=== PATIENT | male | born 1945 | race Caucasian/White ===

== ENCOUNTER → 2018-05-31 08:59 | Outpatient (CLI) | payer MEDICARE, OTHER, SELFPAY ==
[2018-05-31 10:49] LABS: Alanine Aminotransferase 26 IU/L (21-72); Aspartate Aminotransferase 15 IU/L (17-59); Cholesterol 186 mg/dL (140-199); HDL Cholesterol 26 mg/dL (40-60); LDL Cholesterol Calculated 109 mg/dL (<100); Triglycerides 257 mg/dL (35-150)
== END ==
PROVIDERS: Family Provider Family Medicine; PCP Physician Assistant; Visit Provider Physician Assistant
DX: E78.2 Mixed hyperlipidemia (principal)
CPT/HCPCS: 36415; 80061; 84450; 84460

== ENCOUNTER → 2018-10-05 08:56 | Outpatient (CLI) | payer MEDICARE, OTHER, SELFPAY ==
[2018-10-05 10:10] LABS: Cholesterol 166 mg/dL (140-199); HDL Cholesterol 25 mg/dL (40-60); LDL Cholesterol Calculated 96 mg/dL (<100); Triglycerides 225 mg/dL (35-150)
[2018-10-05 10:42] LABS: Thyroid Stimulating Hormone 3.44 uIU/mL (0.47-4.68)
== END ==
PROVIDERS: PCP Physician Assistant; Visit Provider Physician Assistant
DX: E03.9 Hypothyroidism, unspecified (principal); E78.2 Mixed hyperlipidemia
CPT/HCPCS: 36415; 80061; 84443

== ENCOUNTER → 2018-12-15 12:56 | Outpatient (CLI) | payer MEDICARE, OTHER, SELFPAY ==
--- NOTE | 2018-12-15 | DI.CT.S_ITS ---
PROCEDURE: CT ABDOMEN PELVIS W CON INDICATIONS: Lower abdominal pain, unspecified TECHNIQUE: After the administration of oral and intravenous contrast, 5 mm thick sections acquired from the diaphragms to the symphysis. 5 mm thick coronal and sagittal reformats were performed. For radiation dose reduction, the following was used: automated exposure control, adjustment of mA and/or kV according to patient size. COMPARISON: None. FINDINGS: Image quality: Excellent. ABDOMEN: Lung bases: Mild dependent atelectasis is present. There are a few small pulmonary nodules within the left lung base including a 5 mm left lower lobe nodule on series 5 image 12, a 4 mm left lower lobe nodule on image 16, and a 4 mm nodule in the left lower lobe on image 18. Within the inferior middle lobe, there is a small groundglass nodule measuring 5 mm on image 10. Heart size is normal. There is a small hernia. Solid organs: There is diffuse hypoattenuation of the liver consistent with fatty infiltration. The gallbladder appears within normal limits without calcified gallstones. Biliary system is non-dilated. Pancreas enhances normally. Spleen is normal in size and enhancement. No adrenal nodules. Kidneys demonstrate no hydronephrosis. There is mild focal cortical thinning in the superior pole the right kidney which could represent sequela of prior trauma, infection, or infarct. Peritoneum and bowel: Stomach and small bowel loops are normal in caliber and wall thickness. The appendix is normal in appearance. There is colonic diverticulosis with associated inflammatory wall thickening and fat stranding in the proximal sigmoid colon consistent with acute diverticulitis. No evidence of diverticular abscess or microscopic free air. No free fluid. Nodes and vessels: No retroperitoneal or mesenteric adenopathy. There is ectasia of the infrarenal abdominal aorta measuring up to 2.8 cm in anteroposterior dimension. There is diffuse scattered atherosclerotic plaque. 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 Miscellaneous: No ventral hernias. PELVIS: Genitourinary: Bladder wall thickness is normal. There is heterogeneous enlargement of the prostate. Miscellaneous: No inguinal hernias or adenopathy. Bones: No suspicious bony lesions. There are postsurgical changes within the lower lumbar spine at L4-5 status post posterior fixation. An intervertebral spacer is noted at L4-5. No vertebral body compression fractures. IMPRESSION: 1. Acute diverticulitis of the proximal sigmoid colon without evidence of abscess or microscopic free air. 2. Multiple small pulmonary nodules in the left lower lobe measuring up to [address] may be performed in 6-12 months to demonstrate stability if clinically indicated. Findings discussed with Liz Cancino on 11/18/18 at 2:43 PM. 3. 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 4. Hepatic steatosis. Dictated by: Bala Ahuja M.D. on 12/15/2018 at 14:36 Approved by: Bala Ahuja M.D. on 12/15/2018 at 14:46
== END ==
PROVIDERS: PCP Physician Assistant; Visit Provider Physician Assistant
DX: R10.30 Lower abdominal pain, unspecified (principal); K57.32 Diverticulitis of large intestine without perforation or abscess without bleeding; R91.8 Other nonspecific abnormal finding of lung field; I72.2 Aneurysm of renal artery; K76.0 Fatty (change of) liver, not elsewhere classified
CPT/HCPCS: 74177; Q9967

== ENCOUNTER → 2019-12-22 11:03 | Outpatient (CLI) | payer MEDICARE, OTHER, SELFPAY ==
[2019-12-22 11:42] LABS: BUN Creatinine Ratio 15.6 (6-22); Blood Urea Nitrogen 14 mg/dL (9-20); Calcium 9.1 mg/dL (8.4-10.2); Carbon Dioxide 25 mmol/L (22-32); Chloride 99 mmol/L (98-107); Estimated Glomerular Filt Rate > 60.0 mL/min (>60); Glucose 91 mg/dL (80-110); HEMOLYSIS < 15 (0-50); Potassium 4.5 mmol/L (3.4-5.1); Sodium 135 mmol/L (137-145)
--- NOTE | 2019-12-22 12:00 | DI.CT.S_ITS ---
PROCEDURE: CT CHEST W CON INDICATIONS: Solitary pulmonary nodule TECHNIQUE: After the administration of intravenous contrast, 5 mm thick sections acquired from the pulmonary apices to the posterior costophrenic angles. 1 mm axial lung, 5 mm thick coronal and sagittal reformats and 7 mm axial MIP were acquired. For radiation dose reduction, the following was used: automated exposure control, adjustment of mA and/or kV according to patient size. COMPARISON: [facility], MR, C-SPINE WITHOUT CONTRAST, 09/11/2016, 12:05. [facility], RG, XR CXR 2 VIEW, 12/23/2001, 9:52. [facility], CT, CT ABDOMEN PELVIS W CON, 12/15/2018, 13:51. FINDINGS: Image quality: Excellent. Lungs and pleura: No acute air space opacities. The small nodular radiodensities within the lingular segment left upper lobe in the left lower lobe and a similar axial level each has not changed with reference to the prior study from 12/15/18. These again measure between 4 and 5 mm each, and several of the nodules are better visualized than on the prior study without globe changer time otherwise. No pleural effusions or pneumothorax. Central and peripheral airways are patent and normal in caliber. Mediastinum: Heart size is normal. No pericardial effusion. No mediastinal or hilar adenopathy by size criteria. 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 This measures up to 2.2 cm in diameter, has a small amount of eccentric blood flow into its margin that is contiguous with the aortic lumen, and has eccentric chronic thrombosed mineral content more peripherally. This is well visualized on axial image 20 from series 2.. Esophagus is normal in caliber. No hiatal hernia. Bones and chest wall: No suspicious bony lesions. No vertebral body compression fractures. No axillary or supraclavicular adenopathy by size criteria. Thyroid gland appears normal. Abdomen: Visualized upper abdominal solid organs appear normal. Upper abdominal bowel loops are normal in caliber. IMPRESSION: 1. Several scattered left lower lung benign appearing nodules are present, without globe changer time. These range in size from 4-5 mm, and require no followup given their small size and stability of appearance over time over the prior year. Given the proximity and appearance of the nodules they likely are granulomatous in origin. 2. 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 This measures up to 2.2 cm in maximal diameter, contains eccentric internal blood flow and chronic thrombosed blood along its periphery, and has no comparison study to establish stability of appearance over time. This likely is chronic, shows no evidence of adjacent hemorrhage, but has risk of interval enlargement. A vascular surgical consult may be warranted if intervention would be considered. Dictated by: Chuck Ramos M.D. on 12/22/2019 at 13:39 Approved by: Chuck Ramos M.D. on 12/22/2019 at 14:18
== END ==
PROVIDERS: PCP Internal Medicine; Referring Provider Internal Medicine; Visit Provider Internal Medicine
DX: I71.2 Thoracic aortic aneurysm, without rupture (principal); R91.8 Other nonspecific abnormal finding of lung field; I10 Essential (primary) hypertension
CPT/HCPCS: 36415; 71260; 80048; Q9967

== ENCOUNTER → 2020-01-04 15:22 | Outpatient (ROUT) | payer MEDICARE, OTHER, SELFPAY ==
[2020-01-04 15:39] LABS: Add Manual Diff / Slide Review NO; Basophils Absolute Auto 100 /uL (0-100); Basophils Percent Auto 0.5 % (0-2); Eosinophils Absolute Auto 200 /uL (0-450); Eosinophils Percent Auto 1.9 % (2-4); Hematocrit 47.6 % (41-53); Hemoglobin 16.4 g/dL (13.5-17.5); Lymphocytes Absolute Auto 2300 /uL (1100-4500); Lymphocytes Percent Auto 23.7 % (25-40); Mean Corpuscular HGB Conc 34.4 % (30-36); Mean Corpuscular Hemoglobin 29.8 PG (26-34); Mean Corpuscular Volume 86.7 fL (80-100); Monocytes Absolute Auto 900 /uL (0-900); Monocytes Percent Auto 9.3 % (3-14); Neutrophils Absolute Auto 6200 /uL (1500-7000); Neutrophils Percent Auto 64.6 % (50-75); Platelet Count 168 X10^3/uL (150-400); Red Blood Cell Count 5.49 X10^6/uL (4.5-5.9); Red Cell Distribution Width 14.9 % (11.6-14.8); White Blood Cell Count 9.6 X10^3/uL (4.5-11.0)
[2020-01-04 16:23] LABS: Aspartate Aminotransferase 24 IU/L (17-59); BUN Creatinine Ratio 16.7 (6-22); Blood Urea Nitrogen 15 mg/dL (9-20); Calcium 9.6 mg/dL (8.4-10.2); Carbon Dioxide 24 mmol/L (22-32); Chloride 100 mmol/L (98-107); Cholesterol 214 mg/dL (140-199); Estimated Glomerular Filt Rate > 60.0 mL/min (>60); Glucose 91 mg/dL (80-110); HDL Cholesterol 23 mg/dL (40-60); HEMOLYSIS < 15 (0-50); LDL Cholesterol Calculated 124 mg/dL (<100); Potassium 4.3 mmol/L (3.4-5.1); Sodium 139 mmol/L (137-145); Triglycerides 336 mg/dL (35-150); Uric Acid 7.5 mg/dL (3.5-8.5)
[2020-01-04 16:44] LABS: TSH w/ Reflex to FT4 6.48 uIU/mL (0.47-4.68)
[2020-01-04 16:49] LABS: Prostate Specific Antigen 3.53 ng/mL (0.10-4.00)
[2020-01-04 17:08] LABS: Free T4, Direct Thyroxine 1.07 ng/dL (0.78-2.19)
== END ==
PROVIDERS: PCP Internal Medicine; Visit Provider Internal Medicine
DX: I10 Essential (primary) hypertension (principal); E78.2 Mixed hyperlipidemia; E03.9 Hypothyroidism, unspecified; M10.9 Gout, unspecified; N40.0 Benign prostatic hyperplasia without lower urinary tract symptoms
CPT/HCPCS: 80048; 80061; 84153; 84439; 84443; 84450; 84550; 85025

== ENCOUNTER 2020-06-22 18:46 | Emergency (ER) | payer MEDICARE, OTHER, SELFPAY ==
[2020-06-22 18:55] VITALS: BP 159/86; PULSE 94; RESP 17; TEMP 36.9; O2SAT 97; BMI 25.1
--- NOTE | 2020-06-22 19:36 | ED.UPPEXIN ---
HPI - Extremity Injury (Upper) <LAKESHIA Johnston - Last Filed: 06/22/20 21:18> General Chief Complaint: Extremity Injury, Upper Stated Complaint: LEFT SHOULDER AND NECK PAIN Time Seen by Provider: 06/22/20 18:57 Source: patient and family Mode of arrival: Ambulatory History of Present Illness HPI narrative: 75yo male presents to the ED for left sided back, neck, and shoulder pain. Patient states this pain started a few weeks ago and is worse when he turns his head to the left or internally rotate shoulder. He states he has had upper back problems in the past and usually sees a chiropractor but has been unable to get into 1 at this time. Patient states he takes aspirin which has significantly relieved his pain. He denies any fevers, chest pain, shortness of breath, nausea, vomiting, diarrhea, recent spinal injections, or any other concerns. He denies any numbness or tingling, denies any limb weakness. Related Data Home Medications Medication Instructions Recorded Confirmed aspirin 325 mg PO BID 06/22/20 06/22/20 Previous Rx's Medication Instructions Recorded triamcinolone acetonide 0 gm TOPICAL QDAY PRN #1 tube 07/16/16 lisinopril 10 mg PO QDAY #90 tab 02/27/17 ketoconazole [Nizoral] 2 % TOPICAL WEEKLY #120 ml 04/22/17 levothyroxine 75 mcg tablet 75 mcg PO QAM #30 tab 05/20/18 cyclobenzaprine 5 mg PO BID #14 tab 06/22/20 Allergies Allergy/AdvReac Type Severity Reaction Status Date / Time banana [BANANA] Allergy Severe SWELLING Verified 06/22/20 18:58 OF THE THROAT/MOUTH Review of Systems <LAKESHIA Johnston - Last Filed: 06/22/20 21:18> Review of Systems Narrative: REVIEW OF SYSTEMS: GENERAL: Denies fever or chills. HENT: No head trauma. EYES: No double vision or vision loss. CARDIOVASCULAR: No chest pain or syncope. RESPIRATORY: No shortness of breath or cough. GASTROINTESTINAL: No nausea, vomiting, diarrhea, or constipation. GENITOURINARY: No flank pain or dysuria. MUSCULOSKELETAL: Complains of left shoulder and neck pain, see HPI. INTEGUMENTARY: No rash, lesions, or pruritus. NEURO: No numbness, tingling. PSYCH: No behavior or mood changes. Patient History <LAKESHIA Johnston - Last Filed: 06/22/20 21:18> Surgical History History of spinal fusion Status post hernia repair Status post hernia repair Status post hernia repair Status post laminectomy Social History Smoking Status: Never smoker Smoking Status: Never smoker alcohol intake frequency: a few times a week Substance Use Type: does not use Exam <LAKESHIA Johnston - Last Filed: 06/22/20 21:18> Initial Vital Signs Initial Vital Signs: Vital Signs Temperature 98.5 F 06/22/20 18:55 Pulse Rate 94 H 06/22/20 18:55 Respiratory Rate 17 06/22/20 18:55 Blood Pressure 159/86 H 06/22/20 18:55 Pulse Oximetry 97 06/22/20 18:55 PHYSICAL EXAMINATION: GENERAL: Well groomed, alert, and cooperative. Answers questions promptly and appropriately. Vital signs noted. HENT: Normocephalic, atraumatic. EYES: Symmetrical, sclera white, no periorbital swelling. CARDIOVASCULAR: S1 and S2 sounds normal. Regular rate and rhythm, no murmurs, clicks, or bruits. No pedal edema. RESPIRATORY: Normal respiratory rate, trachea midline, airway patent. No stridor, nasal flaring or accessory muscle use. Lungs are clear in all riley. MUSCULOSKELETAL: Tenderness to palpation along the left upper trapezius muscles, palpable muscle spasms noted. Tenderness to palpation along posterior aspect of left shoulder, increased pain with internal rotation. Decreased internal rotation on left side due to pain, full external rotation, flexion, and extension. Normal gait and coordination. Equal tone and mass bilaterally. No spinal tenderness or deformities. EXTREMITIES: CMS intact. No pedal edema. SKIN: Warm, dry, soft, appropriate color for ethnicity. No lesions, rashes, or wounds. NEURO: Alert and Oriented X 3. No sensory deficits. PSYCH: Appropriate affect and mood. <Jignesh Chew DO - Last Filed: 06/23/20 01:44> Initial Vital Signs Initial Vital Signs: Vital Signs Temperature 98.5 F 06/22/20 18:55 Pulse Rate 94 H 06/22/20 18:55 Respiratory Rate 17 06/22/20 18:55 Blood Pressure 159/86 H 06/22/20 18:55 Pulse Oximetry 97 06/22/20 18:55 Course <LAKESHIA Johnston - Last Filed: 06/22/20 21:18> Course Course Narrative: Patient was given Toradol and Valium in the emergency department, reported improved pain. We had a discussion at length about possible options for treatment, discussed benefits and risks muscle relaxers, patient consented. Discussed applying heat, ice, perform gentle stretches and massage to the area. Orders Ordered: ED Orders 06/22/20 18:59 EKG-12 Lead Stat Discontinued Medications Diazepam (Valium) 5 mg PO NOW ONE Stop: 06/22/20 19:36 Last Admin: 06/22/20 20:08 Dose: 5 mg Documented by: WALI Ketorolac Tromethamine (Toradol) 30 mg IM NOW ONE Stop: 06/22/20 19:36 Last Admin: 06/22/20 20:08 Dose: 30 mg Documented by: WALI Vital Signs Vital signs: Vital Signs - 8 hr 06/22/20 18:55 06/22/20 20:44 Temperature 98.5 F Pulse Rate 94 H 74 Respiratory Rate 17 Blood Pressure 159/86 H 160/86 H Pulse Oximetry 97 97 <Jignesh Chew DO - Last Filed: 06/23/20 01:44> Orders Ordered: ED Orders 06/22/20 18:59 EKG-12 Lead Stat Discontinued Medications Diazepam (Valium) 5 mg PO NOW ONE Stop: 06/22/20 19:36 Last Admin: 06/22/20 20:08 Dose: 5 mg Documented by: WALI Ketorolac Tromethamine (Toradol) 30 mg IM NOW ONE Stop: 06/22/20 19:36 Last Admin: 06/22/20 20:08 Dose: 30 mg Documented by: WALI Vital Signs Vital signs: Vital Signs - 8 hr 06/22/20 18:55 06/22/20 20:44 Temperature 98.5 F Pulse Rate 94 H 74 Respiratory Rate 17 Blood Pressure 159/86 H 160/86 H Pulse Oximetry 97 97 MDM - Extremity Injury (Upper) <LAKESHIA Johnston - Last Filed: 06/22/20 21:18> Medical Records Attestation: I reviewed the patient's medical records. Lab Data Attestation: I reviewed the patient's lab results. [facility] Narrative Medical decision making narrative: 75-year-old male presents to the emergency department for reproducible left shoulder and neck pain. I suspect patient's pain is most likely caused by muscle spasms and a pinched nerve given pain that extends from neck to shoulder, worsening pain with certain movements, and complains of intermittent etiology. Less likely cardiac etiology given reproducible pain, palpable muscle spasms, and lack of other concerning symptoms such as chest pain, shortness of breath, or syncope. Return precautions given for new or worsening symptoms. Patient agreed to plan of care verbalized understanding. Discharge Plan Departure Patient Disposition: Home Clinical Impression: Acute shoulder pain Qualifiers: Laterality: left Qualified Code(s): M25.512 - Pain in left shoulder Discharge Date/Time: 06/22/20 20:46 Instructions: DI for Shoulder Pain Activity Restrictions/Additional Instructions: Thank you for entrusting me with your care today. As discussed, your pain is most likely caused by muscle spasms and a pinched nerve. We have given you a shot of Toradol today as well as a dose of a muscle relaxer. I have given you a prescription for muscle relaxer. This medication can make you drowsy. Do not drive while using this medication or perform activities that require mental alertness. Please make a follow-up appointment with your primary care provider in the next 1-2 weeks for further evaluation. Return emergency department for any new or worsening symptoms such as severe pain, chest pain, shortness of breath, or any other concerns. Prescriptions: New cyclobenzaprine 5 mg tablet 5 mg PO BID Qty: 14 RF: 0 No Action triamcinolone acetonide 0.1 % cream 0 gm Topical QDAY PRNQty: 1 RF: 0 lisinopril 10 MG tablet 10 mg PO QDAY Qty: 90 RF: 4 ketoconazole [Nizoral] 2 % shampoo 2 % Topical WEEKLY Qty: 120 RF: 0 levothyroxine [Levoxyl] 75 mcg tablet 75 mcg PO QAM Qty: 30 RF: 0 aspirin 325 mg Tablet 325 mg PO BID RF: 0 Referrals: Noé Mandel MD [Primary Care Provider] - <Jignesh Chew DO - Last Filed: 06/23/20 01:44> Cosign ED Attending Cosignature Attestation: I was immediately available in the department for consultation. This documentation has been reviewed and I agree with assessment and plan. Supervised by Jignesh Chew DO
[2020-06-22] MEDS: diazePAM 5 MG TABLET PO (20:08)
[2020-06-22] MEDS: KETOROLAC 60 MG/2 ML VIAL 30 MG IM (20:08)
--- NOTE | 2020-06-22 20:12 | PC.NURSE ---
reports possible injury from moving fire wood. states a few days ago he started to experience left shoulder and neck pain that started at rest. He states it is likely related to his neck needing adjustment from a chiropractor. he regularly sees chiropractor for relief and has not seen chiropractor in a while. Denies chest pains, shortness of breath, palpataions. EKG performed upon arrival to room by RT.
[2020-06-22 20:44] VITALS: BP 160/86; PULSE 74; O2SAT 97
== END 2020-06-22 20:46 | disposition home or self-care (01) ==
PROVIDERS: Emergency Provider Nurse Practitioner; PCP Internal Medicine
DX: M25.512 Pain in left shoulder (principal); M54.2 Cervicalgia
CPT/HCPCS: 93005; 96372; 99283; 99284; J1885

== ENCOUNTER → 2020-07-04 14:58 | Outpatient (ROUT) | payer MEDICARE, OTHER, SELFPAY ==
[2020-07-04 17:04] LABS: Vitamin D 25 Hydroxy (D3) 36.5 ng/mL (30.0-100.0)
== END ==
PROVIDERS: PCP Internal Medicine; Visit Provider Internal Medicine
DX: E03.9 Hypothyroidism, unspecified (principal); E55.9 Vitamin D deficiency, unspecified
CPT/HCPCS: 82306; 84443

== ENCOUNTER → 2021-01-09 18:32 | Outpatient (ROUT) | payer MEDICARE, OTHER, SELFPAY ==
[2021-01-09 19:23] LABS: Aspartate Aminotransferase 22 IU/L (17-59); BUN Creatinine Ratio 17.7 (6-22); Blood Urea Nitrogen 14 mg/dL (9-20); Calcium 9.4 mg/dL (8.4-10.2); Carbon Dioxide 26 mmol/L (22-32); Chloride 102 mmol/L (98-107); Cholesterol 204 mg/dL (140-199); Estimated Glomerular Filt Rate > 60.0 mL/min (>60); Glucose 77 mg/dL (80-110); HDL Cholesterol 25 mg/dL (40-60); HEMOLYSIS < 15 (0-50); LDL Cholesterol Calculated 120 mg/dL (<100); Potassium 4.3 mmol/L (3.4-5.1); Sodium 135 mmol/L (137-145); Triglycerides 297 mg/dL (35-150); Uric Acid 7.2 mg/dL (3.5-8.5)
[2021-01-09 19:53] LABS: Prostate Specific Antigen 4.01 ng/mL (0.10-4.00)
[2021-01-09 19:56] LABS: TSH w/ Reflex to FT4 4.64 uIU/mL (0.47-4.68)
[2021-01-11 06:18] LABS: Var-Zoster Immunity Screen 273 index (Immune >165)
== END ==
PROVIDERS: PCP Internal Medicine; Visit Provider Internal Medicine
DX: Z20.9 Contact with and (suspected) exposure to unspecified communicable disease (principal); M10.9 Gout, unspecified; N40.0 Benign prostatic hyperplasia without lower urinary tract symptoms
CPT/HCPCS: 80048; 80061; 84153; 84443; 84450; 84550; 86787

== ENCOUNTER → 2022-03-31 11:04 | Outpatient (CLI) | payer MEDICARE, OTHER, SELFPAY ==
[2022-03-31 13:00] LABS: Hematocrit 43.8 % (41-53); Hemoglobin 15.2 g/dL (13.5-17.5); Mean Corpuscular HGB Conc 34.8 % (30-36); Mean Corpuscular Hemoglobin 29.8 PG (26-34); Mean Corpuscular Volume 85.8 fL (80-100); Platelet Count 167 X10^3/uL (150-400); Red Blood Cell Count 5.11 X10^6/uL (4.5-5.9); Red Cell Distribution Width 14.5 % (11.6-14.8); White Blood Cell Count 8.5 X10^3/uL (4.5-11.0)
[2022-03-31 13:17] LABS: Alanine Aminotransferase 18 IU/L (<50); Albumin 4.5 g/dL (3.5-5.0); Albumin Globulin Ratio 1.3 (1.0-2.8); Alkaline Phosphatase 60 U/L (38-126); Aspartate Aminotransferase 22 IU/L (17-59); BUN Creatinine Ratio 18.6 (6-22); Bilirubin Total 0.6 mg/dL (0.2-1.3); Blood Urea Nitrogen 16 mg/dL (9-20); Calcium 8.9 mg/dL (8.4-10.2); Carbon Dioxide 24 mmol/L (22-32); Chloride 103 mmol/L (98-107); Cholesterol 193 mg/dL (140-199); Estimated Glomerular Filt Rate > 60 mL/min (>60); Globulin 3.6 g/dL (1.7-4.1); Glucose 94 mg/dL (80-110); HDL Cholesterol 25 mg/dL (40-60); HEMOLYSIS 15 (0-50); LDL Cholesterol Calculated 95 mg/dL (<100); Potassium 4.5 mmol/L (3.4-5.1); Sodium 135 mmol/L (137-145); Total Protein 8.1 g/dL (6.3-8.2); Triglycerides 367 mg/dL (35-150)
[2022-03-31 14:16] LABS: TSH w/ Reflex to FT4 3.39 uIU/mL (0.47-4.68)
== END ==
PROVIDERS: PCP Internal Medicine; Referring Provider Internal Medicine; Visit Provider Internal Medicine
DX: I10 Essential (primary) hypertension (principal); E03.9 Hypothyroidism, unspecified
CPT/HCPCS: 36415; 80053; 80061; 84443; 85027

== ENCOUNTER 2023-03-25 11:26 | Emergency (ER) | payer MEDICARE, SELFPAY ==
[2023-03-25] VITALS (26 sets, daily range): BP systolic 139–195; BP diastolic 81–97; PULSE 71–95; RESP 12–27; TEMP 36.6; O2SAT 95–98; BMI 23.8
--- NOTE | 2023-03-25 11:55 | DI.RAD.S_ITS ---
PROCEDURE: XR CHEST 1V INDICATIONS: chest pain TECHNIQUE: One view of the chest was acquired. COMPARISON: [facility], , XR CXR 2 VIEW, 12/23/2001, 9:52. FINDINGS: Surgical changes and devices: None. Lungs and pleura: Lungs are clear. No pleural effusions or pneumothorax. Mediastinum: Mediastinal contours appear normal. Heart size is normal. Bones and chest wall: No suspicious bony lesions. Overlying soft tissues appear unremarkable. IMPRESSION: No acute cardiopulmonary abnormality. Dictated by: Jarett Donahue M.D. on 03/25/2023 at 12:33 Approved by: Jarett Donahue M.D. on 03/25/2023 at 12:34
[2023-03-25 12:04] LABS: INR 1.2 (0.9-1.3); Prothrombin Time 13.7 SECONDS (10.1-12.7)
[2023-03-25 12:07] LABS: PTT Partial Thromboplastin Tim 28 SECONDS (26-36)
[2023-03-25 12:10] LABS: Add Manual Diff / Slide Review NO; Alanine Aminotransferase 23 IU/L (<50); Albumin 4.4 g/dL (3.5-5.0); Albumin Globulin Ratio 1.2 (1.0-2.8); Alkaline Phosphatase 58 U/L (38-126); Aspartate Aminotransferase 22 IU/L (17-59); BUN Creatinine Ratio 20.5 (6-22); Basophils Absolute Auto 0 /uL (0-100); Basophils Percent Auto 0.4 % (0-2); Bilirubin Total 0.9 mg/dL (0.2-1.3); Blood Urea Nitrogen 16 mg/dL (9-20); Calcium 8.9 mg/dL (8.4-10.2); Carbon Dioxide 22 mmol/L (22-32); Chloride 103 mmol/L (98-107); Creatine Kinase 55 U/L (55-170); Eosinophils Absolute Auto 0 /uL (0-450); Eosinophils Percent Auto 0.4 % (2-4); Estimated Glomerular Filt Rate > 60 mL/min (>60); Globulin 3.6 g/dL (1.7-4.1); Glucose 100 mg/dL (80-110); HEMOLYSIS 17 (0-50); Hematocrit 45.6 % (41-53); Hemoglobin 15.7 g/dL (13.5-17.5); Lipase 78 U/L (23-300); Lymphocytes Absolute Auto 1800 /uL (1100-4500); Lymphocytes Percent Auto 18.5 % (25-40); Magnesium 2.2 mg/dL (1.6-2.3); Mean Corpuscular HGB Conc 34.4 % (30-36); Mean Corpuscular Hemoglobin 29.8 PG (26-34); Mean Corpuscular Volume 86.6 fL (80-100); Monocytes Absolute Auto 900 /uL (0-900); Neutrophils Absolute Auto 6900 /uL (1500-7000); Neutrophils Percent Auto 71.7 % (50-75); Platelet Count 152 X10^3/uL (150-400); Potassium 4.3 mmol/L (3.4-5.1); Red Blood Cell Count 5.26 X10^6/uL (4.5-5.9); Red Cell Distribution Width 14.7 % (11.6-14.8); Sodium 136 mmol/L (137-145); White Blood Cell Count 9.6 X10^3/uL (4.5-11.0)
[2023-03-25 12:20] LABS: Troponin I < 0.012 ng/mL (0.01-0.034)
--- NOTE | 2023-03-25 13:00 | DI.CT.S_ITS ---
PROCEDURE: CT HEAD/BRAIN WO CON INDICATIONS: ataxia/stroke suspected TECHNIQUE: Noncontrast 4.5 mm thick angled axial sections acquired from the foramen magnum to the vertex, with coronal and sagittal reformats. For radiation dose reduction, the following was used: automated exposure control, adjustment of mA and/or kV according to patient size. COMPARISON: None. FINDINGS: Image quality: Excellent. CSF spaces: Basal cisterns are patent. No extra-axial fluid collections. The ventricles are symmetric in size and shape. Brain: No intracranial bleeds or masses. There is cerebral volume loss for age, with resultant ventricular and sulcal prominence. There are periventricular and deep white matter chronic small vessel ischemic changes. There is intracranial internal carotid artery atherosclerosis. Skull and face: Calvarium and visualized facial bones appear intact, without suspicious lesions. Sinuses: Visualized sinuses and mastoids are clear. IMPRESSION: No acute intracranial hemorrhage is seen. No acute intracranial process is seen. Note is made of age-appropriate brain parenchymal volume loss and chronic small vessel ischemic changes. If there is strong clinical suspicion for an acute stroke, please consider a brain MRI for further evaluation, as it is more sensitive (assuming that there is no contraindication to MRI). Dictated by: Kwaku Cosme M.D. on 03/25/2023 at 13:25 Approved by: Kwaku Cosme M.D. on 03/25/2023 at 13:26
--- NOTE | 2023-03-25 13:00 | DI.CT.S_ITS ---
PROCEDURE: CT ANGIO CHEST ABDOMEN PELVIS INDICATIONS: abd pain/history of aneurysm TECHNIQUE: Precontrast 5 mm thick sections acquired from the lung apices to the iliac crests. After the administration of intravenous contrast, 2.5 mm thick sections again acquired from the lung apices to the iliac crests. Maximum intensity projection (MIP) oblique sagittal and coronal reformats were then acquired. For radiation dose reduction, the following was used: automated exposure control. COMPARISON: None. FINDINGS: Image quality: Excellent. 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 CHEST: Lungs and pleura: No acute airspace opacities. No pleural effusions or pneumothorax. Central and peripheral airways are patent and normal in caliber. 9 mm juxtapleural nodule with smooth margins in the right middle lobe, presumably a benign intrapulmonary lymph node. Stable left lower lobe nodules, largest measuring 6 mm (series 6, image 294 No consolidation. No pneumothorax. No effusions. Mediastinum: Heart size is normal. No pericardial effusion. No mediastinal or hilar adenopathy by size criteria. Central pulmonary arteries are normal in size. Esophagus is normal in caliber. No hiatal hernias. Bones and chest wall: No axillary adenopathy by size criteria. Thyroid gland is unremarkable . No suspicious bony lesions. No vertebral body compression fractures. ABDOMEN: Vasculature: Celiac trunk and mesenteric arteries are patent. Renal arteries are also patent. Solid organs: Liver is normal in size and enhancement. Gallbladder is unremarkable . Biliary system is non dilated. Pancreas enhances normally. Spleen is normal in size and enhancement. No adrenal nodules. Both kidneys are normal in size and enhancement, without hydronephrosis. Peritoneum and bowel: No free fluid or air. Bowel loops are normal in caliber and wall thickness. 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 Miscellaneous: No ventral hernias. PELVIS: Genitourinary: Bladder wall thickness is normal. Miscellaneous: No inguinal hernias or adenopathy. No ventral hernias. Bones: No suspicious bony lesions. No vertebral body compression fractures. 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 Dictated by: Kevin Edwards M.D. on 03/25/2023 at 14:03 Approved by: Kevin Edwards M.D. on 03/25/2023 at 14:15
--- NOTE | 2023-03-25 13:02 | ED.DIZZY ---
HPI - Dizziness General Chief Complaint: Dizziness Stated Complaint: lightheaded/dizzy/shakes T-3 Time Seen by Provider: 03/25/23 12:49 Source: patient Mode of arrival: Ambulatory History of Present Illness HPI Narrative: Patient brought here from home by for complains of dizziness for the past 1 week. This only occurs in the afternoon and starts on slowly and lasts about 3 hours. No dizziness at nighttime. Denies any chest pain however does complain of abdominal cramping off and on with the dizziness. 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 However it was thought to be more of dilatation. No studies for the past 3 years. Denies any chest pain or back pain with this dizziness. No hearing changes no vision changes. No numbness tingling or weakness or syncope. No diaphoresis. No headache. No prior history of stroke. Patient denies any symptoms or complaints now. However at home prior to arrival he was dizzy. He has had associated high blood pressure in the afternoons with dizziness. He does take blood pressure medication lisinopril. No recent illness. Fast exam is negative Related Data Home Medications Medication Instructions Recorded Confirmed aspirin 325 mg tablet 325 mg PO BID 06/22/20 03/30/23 Previous Rx's Medication Instructions Recorded triamcinolone acetonide 0.1 % 0 gm topical QDAY PRN #1 tube 07/16/16 topical cream ketoconazole 2 % shampoo (Nizoral) 2 % topical WEEKLY #120 mL 04/22/17 levothyroxine 75 mcg tablet 75 mcg PO QAM #90 tabs 03/28/22 (Levoxyl) lisinopril 10 mg tablet 10 mg PO QDAY #90 tabs 11/12/22 Allergies Allergy/AdvReac Type Severity Reaction Status Date / Time banana [BANANA] Allergy Severe SWELLING Verified 03/30/23 13:53 OF THE THROAT/MOUTH atorvastatin AdvReac Intermediate Joint Pain Verified 03/30/23 13:53 Review of Systems Review of Systems Narrative: GENERAL: negative chills, fatigue, malaise, fever, sweats. HEENT: negative sinus pain, ear pain, sore throat RESPIRATORY: negative dyspnea, cough CARDIOVASCULAR: negative chest pain, palpitations GASTROINTESTINAL: negative nausea, vomiting, positive abdominal pain : negative dysuria, frequency, hematuria MUSCULOSKELETAL: negative muscle or bony pain SKIN: negative rash, skin lesions NEUROLOGIC: negative weakness, numbness, positive dizzy ROS Unobtainable: All systems reviewed & are unremarkable except as noted in HPI and below Patient History Medical History (Updated 03/30/23 @ 12:58 by Noé Mandel MD) Essential hypertension Mixed hyperlipidemia Surgical History History of spinal fusion Status post hernia repair Status post hernia repair Status post hernia repair Status post laminectomy Social History Smoking Status: Never smoker Smoking Status: Never smoker alcohol intake frequency: a few times a month Alcohol type: beer Substance Use Type: does not use Exam Narrative Exam Narrative: GENERAL: in no distress, not toxic not dyspneic HEAD: Normocephalic. EYES: Pupils equal round ENT: Mucous membranes moist. NECK: Trachea midline. No carotid bruit CARDIOVASCULAR: Regular rate and rhythm without murmurs strong bilateral carotid posterior tib and radial pulses. RESPIRATORY: Clear to auscultation. Breath sounds equal bilaterally. No wheezes, rales, or rhonchi. GASTROINTESTINAL: Abdomen soft, non-tender, abdomen soft nontender no bounding expanding pulsatile mass. No pain out of proportion to exam. No peritoneal signs. Bowel sounds are present EXTREMITIES: No gross deformities. BACK: No flank tenderness. NEURO: AOx4. Clear speech no facial droop. ?Light touch intact to bilateral face hands and feet. ?Strong equal switch engineer bilaterally and ankle flexion hip flexion and knee flexion. ?Strong bilateral patellar reflexes. ?No pronator drift. ? SKIN: Warm and dry PSYCH: Not anxious, is cooperative Initial Vital Signs Initial Vital Signs: Vital Signs Pulse Rate 95 H 03/25/23 11:32 Pulse Oximetry 97 03/25/23 11:32 Course Orders Ordered: Discontinued Medications Aspirin (Aspirin 81 Mg Chew Tab) 324 mg PO NOW ONE Stop: 03/25/23 11:56 Last Admin: 03/25/23 13:03 Dose: Not Given Documented By: WILMAR Sodium Chloride (Normal Saline 0.9%) 500 mls @ 1,000 mls/hr IV BOLUS ONE Stop: 03/25/23 13:29 Last Infusion: 03/25/23 14:42 Dose: 0 mls/hr Documented By: Admin: 03/25/23 13:20 Dose: 1,000 mls/hr Documented By: EMMA Metoprolol Succinate (Metoprolol Er 25 Mg Tablet) 25 mg PO NOW ONE Stop: 03/25/23 17:04 Last Admin: 03/25/23 17:59 Dose: 25 mg Documented By: JAY Vital Signs Vital signs: Vital Signs - 8 hr 03/25/23 11:39 03/25/23 11:32 03/25/23 11:33 Temperature 98 F Pulse Rate 88 95 H Respiratory Rate 14 Blood Pressure 184/92 H 184/92 H Pulse Oximetry 97 97 Oxygen Delivery Method Room Air 03/25/23 11:33 03/25/23 12:00 03/25/23 12:00 Temperature Pulse Rate 90 79 Respiratory Rate 18 Blood Pressure 154/85 H Pulse Oximetry 97 95 Oxygen Delivery Method 03/25/23 12:30 03/25/23 12:30 03/25/23 13:00 Temperature Pulse Rate 72 Respiratory Rate 21 Blood Pressure 139/83 162/89 H Pulse Oximetry 96 Oxygen Delivery Method Room Air 03/25/23 13:00 03/25/23 13:30 03/25/23 14:02 Temperature Pulse Rate 75 75 75 Respiratory Rate 19 Blood Pressure Pulse Oximetry 97 97 Oxygen Delivery Method Room Air 03/25/23 14:04 03/25/23 14:04 03/25/23 14:30 Temperature Pulse Rate 76 Respiratory Rate 26 H Blood Pressure 182/81 H 179/88 H Pulse Oximetry 97 Oxygen Delivery Method 03/25/23 14:30 03/25/23 15:00 03/25/23 15:00 Temperature Pulse Rate 83 74 Respiratory Rate 27 H 12 Blood Pressure 166/81 H Pulse Oximetry 97 95 Oxygen Delivery Method 03/25/23 15:30 03/25/23 15:30 03/25/23 16:31 Temperature Pulse Rate 77 78 Respiratory Rate 16 16 Blood Pressure 145/82 H Pulse Oximetry 96 96 Oxygen Delivery Method Room Air 03/25/23 16:00 03/25/23 16:00 03/25/23 16:29 Temperature Pulse Rate 74 Respiratory Rate 16 Blood Pressure 155/83 H 188/91 H Pulse Oximetry 95 Oxygen Delivery Method 03/25/23 16:29 03/25/23 17:59 03/25/23 16:30 Temperature Pulse Rate 78 72 Respiratory Rate 17 Blood Pressure 170/91 H 172/97 H Pulse Oximetry 97 Oxygen Delivery Method Room Air 03/25/23 16:30 03/25/23 17:00 03/25/23 17:00 Temperature Pulse Rate 80 78 Respiratory Rate 20 12 Blood Pressure 195/94 H Pulse Oximetry 97 98 Oxygen Delivery Method 03/25/23 17:02 03/25/23 17:02 03/25/23 17:30 Temperature Pulse Rate 78 Respiratory Rate 24 Blood Pressure 185/92 H 177/92 H Pulse Oximetry 98 Oxygen Delivery Method 03/25/23 17:30 03/25/23 17:58 03/25/23 17:58 Temperature Pulse Rate 81 84 Respiratory Rate 16 24 Blood Pressure 170/91 H Pulse Oximetry 98 97 Oxygen Delivery Method 03/25/23 18:00 03/25/23 18:00 03/25/23 18:30 Temperature Pulse Rate 78 Respiratory Rate 18 Blood Pressure 167/86 H 159/89 H Pulse Oximetry 97 Oxygen Delivery Method 03/25/23 18:30 Temperature Pulse Rate 80 Respiratory Rate 19 Blood Pressure Pulse Oximetry 96 Oxygen Delivery Method MDM - Dizziness Lab Data 03/25/23 11:35 03/25/23 11:35 Labs: Lab Results 03/25/23 03/25/23 03/25/23 Range/Units 11:35 11:35 11:35 WBC 9.6 (4.5-11.0) X10^3/uL RBC 5.26 (4.5-5.9) X10^6/uL Hgb 15.7 (13.5-17.5) g/dL Hct 45.6 (41-53) % MCV 86.6 (80-100) fL MCH 29.8 (26-34) PG MCHC 34.4 (30-36) % RDW 14.7 (11.6-14.8) % Plt Count 152 (150-400) X10^3/uL Neut % (Auto) 71.7 (50-75) % Lymph % (Auto) 18.5 L (25-40) % [place] % (Auto) 9.0 (3-14) % Eos % (Auto) 0.4 L (2-4) % Baso % (Auto) 0.4 (0-2) % Neut # (Auto) 6900 (8133-1437) /uL Lymph # (Auto) 1800 (3528-6872) /uL [place] # (Auto) 900 (0-900) /uL Eos # (Auto) 0 (0-450) /uL Baso # (Auto) 0 (0-100) /uL PT 13.7 H (10.1-12.7) SECONDS INR 1.2 (0.9-1.3) APTT 28 (26-36) SECONDS Sodium 136 L (137-145) mmol/L Potassium 4.3 (3.4-5.1) mmol/L Chloride 103 (98-107) mmol/L Carbon Dioxide 22 (22-32) mmol/L BUN 16 (9-20) mg/dL Creatinine 0.78 (0.66-1.25) mg/dL Estimated GFR > 60 (>60) mL/min BUN/Creatinine Ratio 20.5 (6-22) Glucose 100 (80-110) mg/dL Calcium 8.9 (8.4-10.2) mg/dL Magnesium 2.2 (1.6-2.3) mg/dL Total Bilirubin 0.9 (0.2-1.3) mg/dL AST 22 (17-59) IU/L ALT 23 (<50) IU/L Alkaline Phosphatase 58 (38-126) U/L Total Creatine Kinase 55 (55-170) U/L CK-MB (CK-2) TNP CK-MB (CK-2) Rel Index TNP Troponin I < 0.012 (0.01-0.034) ng/mL Total Protein 8.0 (6.3-8.2) g/dL Albumin 4.4 (3.5-5.0) g/dL Globulin 3.6 (1.7-4.1) g/dL Albumin/Globulin Ratio 1.2 (1.0-2.8) Lipase 78 (23-300) U/L SARS-CoV-2 (PCR) (Negative) 03/25/23 Range/Units 13:10 WBC (4.5-11.0) X10^3/uL RBC (4.5-5.9) X10^6/uL Hgb (13.5-17.5) g/dL Hct (41-53) % MCV (80-100) fL MCH (26-34) PG MCHC (30-36) % RDW (11.6-14.8) % Plt Count (150-400) X10^3/uL Neut % (Auto) (50-75) % Lymph % (Auto) (25-40) % [place] % (Auto) (3-14) % Eos % (Auto) (2-4) % Baso % (Auto) (0-2) % Neut # (Auto) (7964-7947) /uL Lymph # (Auto) (6937-6154) /uL [place] # (Auto) (0-900) /uL Eos # (Auto) (0-450) /uL Baso # (Auto) (0-100) /uL PT (10.1-12.7) SECONDS INR (0.9-1.3) APTT (26-36) SECONDS Sodium (137-145) mmol/L Potassium (3.4-5.1) mmol/L Chloride (98-107) mmol/L Carbon Dioxide (22-32) mmol/L BUN (9-20) mg/dL Creatinine (0.66-1.25) mg/dL Estimated GFR (>60) mL/min BUN/Creatinine Ratio (6-22) Glucose (80-110) mg/dL Calcium (8.4-10.2) mg/dL Magnesium (1.6-2.3) mg/dL Total Bilirubin (0.2-1.3) mg/dL AST (17-59) IU/L ALT (<50) IU/L Alkaline Phosphatase (38-126) U/L Total Creatine Kinase (55-170) U/L CK-MB (CK-2) CK-MB (CK-2) Rel Index Troponin I (0.01-0.034) ng/mL Total Protein (6.3-8.2) g/dL Albumin (3.5-5.0) g/dL Globulin (1.7-4.1) g/dL Albumin/Globulin Ratio (1.0-2.8) Lipase (23-300) U/L SARS-CoV-2 (PCR) Negative (Negative) Imaging Data Chest x-ray: Radiologist's Impression: FINDINGS:? ? Surgical changes and devices:? None.? ? Lungs and pleura:? Lungs are clear.? No pleural effusions or pneumothorax.? ? Mediastinum:? Mediastinal contours appear normal.? Heart size is normal.? ? Bones and chest wall:? No suspicious bony lesions.? Overlying soft tissues appear unremarkable.? ? IMPRESSION:? No acute cardiopulmonary abnormality. CT scan - head: Radiologist's Impression: MPRESSION:? No acute intracranial hemorrhage is seen.? ? No acute intracranial process is seen.? ? Note is made of age-appropriate brain parenchymal volume loss and chronic small vessel ischemic changes. ? If there is strong clinical suspicion for an acute stroke, please consider a brain MRI for further evaluation, as it is more sensitive (assuming that there is no contraindication to MRI). 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 ? 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 ? 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 MDM Narrative Medical decision making narrative: Patient brought here from home by for complains of dizziness for the past 1 week. This only occurs in the afternoon and starts on slowly and lasts about 3 hours. No dizziness at nighttime. Denies any chest pain however does complain of abdominal cramping off and on with the dizziness. 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 However it was thought to be more of dilatation. No studies for the past 3 years. Denies any chest pain or back pain with this dizziness. No hearing changes no vision changes. No numbness tingling or weakness or syncope. No diaphoresis. No headache. No prior history of stroke. Patient denies any symptoms or complaints now. However at home prior to arrival he was dizzy. He has had associated high blood pressure in the afternoons with dizziness. He does take blood pressure medication lisinopril. No recent illness. Fast exam is negative After history and exam CBC CMP troponin EKG CT angiogram head and neck, CT angio chest abdomen pelvis, normal saline [facility] CC: Ataxia Complicating co-morbidities: Aortic aneurysm history Data collected from: Patient and Medical records reviewed: No recent visits here for this complaint Differential considered: Includes but not limited to aortic aneurysm aortic dissection pulmonary embolism stroke vertigo hypertensive urgency Exam documented above, pertinent findings include: Strong bilateral carotid radial and posterior tib pulses Lab Test results independently reviewed as above. Pertinent findings: Hemoglobin 15.7 hematocrit 45.6 BUN 16 creatinine 0.78 GFR greater than 60 AST 22 ALT 23 troponin less than 0.012 Independently reviewed EKG as above normal sinus rhythm rate [address] elevation or depression, repeat EKG normal sinus rhythm rate [address] elevation or depression Imaging studies independently reviewed: Chest x-ray no acute process CT head no acute process. CT angiogram chest abdomen pelvis impression 2.6 x 2.2 cm saccular aortic aneurysm versus nonruptured penetrating ulcer at the expected position of the ductus arteriosus takeoff of the aortic arch. Fusiform aneurysmal dilatation of the right internal iliac artery measuring 2 point cm, previously 2.2 cm. 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 Spoke with hospitalist, Dr. Chen, recommends reviewing with patient's vascular surgeon of aneurysmal findings. 6:00 p.m.. I spoke with [facility] vascular surgeon Dr Camejo, he has reviewed CT imaging and report, patient does not need to be transferred. No surgical intervention required for aneurysms. These are stable. These are not likely source of patient's dizziness. However, blood pressure likely source of his dizziness Treatments: Normal saline metoprolol Re-evaluations: 2:17 p.m.. There was a reading on the monitor that said V-tach. However patient denies any symptoms. No palpitations chest pain headache or dizziness. Likely the wiring failure. We changed out the leads. Got repeat EKG. It does normal sinus rhythm rate 77 5:00 p.m.. Blood pressure noted. Has remain elevated. Patient already took blood pressure medications morning. Metoprolol will be ordered now. 6:30 p.m.. Blood pressure has improved after metoprolol. 159/89, I reviewed patient's symptoms and results with him. At this time patient likely has hypertensive urgency. He only has symptoms of dizziness in afternoon when his blood pressure is elevated daily. He does not have symptoms in the morning when his blood pressure is normal, he has no symptoms at nighttime. We discussed follow up with his primary care. He will continue lisinopril in the morning and repeat dose in the afternoon. Patient has been asymptomatic during course of stay. He desires discharge home and agrees with treatment plan. Return precautions reviewed with him. Discussion: Appropriate for discharge home. Patient symptoms only and afternoon when his blood pressure is elevated. He is not had his blood pressure medication changed in years. He is asymptomatic here. His blood pressure has improved with metoprolol. Return precautions reviewed with him. We will try taking lisinopril 10 mg in the morning and 10 mg in the afternoon. morning dose of lisinopril keeps him on average around 135/80. Metoprolol may lower his blood pressure too much as well as heart rate. We did try a dose here. Return precautions reviewed with him. I did send a noticed to his primary care to review the chart in the morning. He has appointment next Thursday with his primary care. Patient never had any dizziness while here. Denies ever having any chest pain or headache or back pain Diagnosis: Hypertensive urgency Discharge Plan Departure Patient Disposition: Home Clinical Impression: Hypertensive urgency Instructions: High Blood Pressure, DI for Dizziness-Nonvertigo Activity Restrictions/Additional Instructions: Please call your family doctor in the morning to inform about your visit here and medication changes for your blood pressure. You will take lisinopril 10 mg in the morning and then 10 mg again in the afternoon. Your dizziness is likely related to your elevated blood pressure in the afternoon. This has been consistent daily in the past week. Laboratory studies and imaging studies today are reassuring. Return if worse if any questions or concerns. Prescriptions: No Action triamcinolone acetonide 0.1 % cream 0 gm Topical QDAY PRNQty: 1 0RF ketoconazole [Nizoral] 2 % shampoo 2 % Topical WEEKLY Qty: 120 0RF lisinopril 10 mg tablet 10 mg PO QDAY Qty: 90 3RF levothyroxine [Levoxyl] 75 mcg tablet 75 mcg PO QAM Qty: 90 3RF aspirin 325 mg Tablet 325 mg PO BID Referrals: Noé Mandel MD [Primary Care Provider] - Stand Alone Forms: Patient Portal/API
[2023-03-25] MEDS: SODIUM CHLORIDE 0.9% 500 ML 1000 ML IV (13:20)
[2023-03-25 13:35] LABS: COVID19 -Nasal RAPID Negative (Negative)
--- NOTE | 2023-03-25 16:32 | PC.NURSE ---
Patient denies dizziness and states he is feeling much better.
[2023-03-25] MEDS: METOPROLOL ER 25 MG TABLET PO (17:59)
== END 2023-03-25 19:19 | disposition home or self-care (01) ==
PROVIDERS: Emergency Provider Emergency Medicine; PCP Internal Medicine
DX: I16.0 Hypertensive urgency (principal); R42 Dizziness and giddiness; Z20.822 Contact with and (suspected) exposure to COVID-19
CPT/HCPCS: 36415; 70450; 71045; 71275; 74174; 80053; 82550; 83690; 83735; 84484; 85025; 85610; 85730; 87635; 93005; 96360; 99284; 99285; C9803; Q9967

== ENCOUNTER → 2023-11-18 15:49 | Outpatient (CLI) | payer OTHER, SELFPAY ==
[2023-11-18 17:18] LABS: Add Manual Diff / Slide Review NO; Basophils Absolute Auto 0 /uL (0-100); Basophils Percent Auto 0.4 % (0-2); Eosinophils Absolute Auto 100 /uL (0-450); Eosinophils Percent Auto 0.8 % (2-4); Hematocrit 43.7 % (41-53); Hemoglobin 14.9 g/dL (13.5-17.5); Lymphocytes Absolute Auto 2300 /uL (1100-4500); Lymphocytes Percent Auto 21.5 % (25-40); Mean Corpuscular HGB Conc 34.2 % (30-36); Mean Corpuscular Hemoglobin 29.7 PG (26-34); Monocytes Absolute Auto 900 /uL (0-900); Monocytes Percent Auto 8.7 % (3-14); Neutrophils Absolute Auto 7300 /uL (1500-7000); Neutrophils Percent Auto 68.6 % (50-75); Platelet Count 182 X10^3/uL (150-400); Red Blood Cell Count 5.02 X10^6/uL (4.5-5.9); Red Cell Distribution Width 14.6 % (11.6-14.8); White Blood Cell Count 10.7 X10^3/uL (4.5-11.0)
== END ==
PROVIDERS: PCP Internal Medicine; Referring Provider Physician Assistant; Visit Provider Physician Assistant
DX: I10 Essential (primary) hypertension (principal)
CPT/HCPCS: 36415; 84443; 85025

== ENCOUNTER → 2023-12-07 12:37 | Outpatient (CLI) | payer OTHER, SELFPAY ==
[2023-12-07 14:00] LABS: BUN Creatinine Ratio 15.1 (6-22); Blood Urea Nitrogen 13 mg/dL (9-20); Calcium 9.2 mg/dL (8.4-10.2); Carbon Dioxide 24 mmol/L (22-32); Chloride 101 mmol/L (98-107); Estimated Glomerular Filt Rate > 60 mL/min (>60); Glucose 88 mg/dL (80-110); HEMOLYSIS < 15 (0-50); Potassium 4.5 mmol/L (3.4-5.1); Sodium 135 mmol/L (137-145)
== END ==
PROVIDERS: PCP Internal Medicine; Referring Provider Internal Medicine; Visit Provider Internal Medicine
DX: I10 Essential (primary) hypertension (principal)
CPT/HCPCS: 36415; 80048

== ENCOUNTER → 2023-12-09 13:36 | Outpatient (CLI) | payer OTHER, SELFPAY | PROVIDERS: PCP Internal Medicine; Referring Provider Physician Assistant; Visit Provider Physician Assistant | DX: R00.2 Palpitations (principal) | CPT/HCPCS: 93242 ==

== ENCOUNTER → 2024-01-05 15:50 | Outpatient (CLI) | payer OTHER, SELFPAY ==
[2024-01-05 18:30] LABS: BUN Creatinine Ratio 16.9 (6-22); Blood Urea Nitrogen 15 mg/dL (9-20); Calcium 9.2 mg/dL (8.4-10.2); Carbon Dioxide 22 mmol/L (22-32); Chloride 101 mmol/L (98-107); Estimated Glomerular Filt Rate > 60 mL/min (>60); Glucose 87 mg/dL (80-110); HEMOLYSIS 18 (0-50); Potassium 4.4 mmol/L (3.4-5.1); Sodium 135 mmol/L (137-145)
== END ==
PROVIDERS: PCP Internal Medicine; Referring Provider Internal Medicine; Visit Provider Internal Medicine
DX: I72.3 Aneurysm of iliac artery (principal); I71.22 Aneurysm of the aortic arch, without rupture
CPT/HCPCS: 36415; 80048

== ENCOUNTER → 2024-01-12 12:09 | Outpatient (CLI) | payer OTHER, SELFPAY ==
--- NOTE | 2024-01-12 12:11 | DI.CT.S_ITS ---
PROCEDURE: CT ANGIO CHEST ABDOMEN PELVIS INDICATIONS: aneurysm TECHNIQUE: Precontrast 5 mm thick sections acquired from the lung apices to the iliac crests. After the administration of intravenous contrast, 2.5 mm thick sections again acquired from the lung apices to the iliac crests. Maximum intensity projection (MIP) oblique sagittal and coronal reformats were then acquired. For radiation dose reduction, the following was used: automated exposure control. COMPARISON: [facility], CT, CT ANGIO CHEST ABDOMEN PELVIS, 03/25/2023, 13:35. FINDINGS: Image quality: Diagnostic. AORTA: A saccular aneurysm is redemonstrated at the ductus arteriosus which measures 2.6 x 2.2 cm on the current study. This is unchanged when compared with the prior CT dated March 25, 2023. Dense atheromatous calcifications are present throughout the thoracic arch. Scattered calcifications are present within the descending thoracic aorta. No other aneurysmal dilatation. No aortic dissection. Dense atheromatous calcifications are present throughout the abdominal aorta. Diffuse form aneurysm is present within the right internal iliac artery which measures 3.0 cm in diameter and is unchanged from the study dated March 25, 2023. A fusiform aneurysm is present within the left internal iliac artery and measures 2.1 cm on the current study which is increased from 1.9 cm on the prior CT. The pelvic arteries are otherwise normal in course and caliber with scattered atheromatous calcifications throughout. CHEST: Lower Neck: No enlarged lymph nodes. Thyroid: No thyroid nodules which require sonographic evaluation. Axillae: No enlarged lymph nodes. Chest Wall: Unremarkable. Lungs and Pleura: No pneumothorax or pleural effusions. There is an unchanged 8 mm inter fissural nodule within the right oblique fissure (series 5/image 182). A 6 mm pulmonary nodule within the left lower lobe is unchanged from March 25, 2023 (series 5/image 229). A stable 5 mm pulmonary nodule is present at the lateral aspect of the left lower lobe (series 5/image 251). A 5 mm pulmonary nodule at the lingular base is unchanged (series 5/image 237). Heart: Heart size is normal. No pericardial effusion. Thoracic Vessels: Pulmonary arteries demonstrate normal size. Mediastinum and [place]: No enlarged lymph nodes. Esophagus: No wall thickening. There is a small hiatal hernia. ABDOMEN: Liver: No solid mass. Gallbladder: No radiopaque gallstones or wall thickening. Biliary ducts: No biliary dilation. Pancreas: No ductal dilation. Spleen: Size is within normal limits. Adrenal Glands: No adrenal nodules. Kidneys and Ureters: No hydronephrosis. No solid mass. No complex renal cystic lesion which requires follow up. Stomach and Bowel: Normal colonic caliber, without significant wall thickening. The appendix is thin walled and gas filled. There are scattered sigmoid diverticula. No evidence for diverticulitis. Peritoneum: No abnormal intraperitoneal fluid. No free air. Ventral Wall: No hernia. Abdominal Nodes: No retroperitoneal or mesenteric adenopathy by size criteria. Vessels: The inferior vena cava is unremarkable. PELVIS: Pelvic Organs: Unremarkable. Bladder: Unremarkable. Pelvic Nodes: No enlarged lymph nodes. Miscellaneous: No inguinal hernias are seen. Bones: Unremarkable. IMPRESSION: 1. Stable appearance of the thoracic arch aneurysm when compared with the study dated March 25, 2023. 2. Stable appearance of the right internal iliac artery ectasia. 3. Slight increase in the ectasias of the left internal iliac artery. 4. Normal appendix. Diverticulosis. No acute diverticulitis. 5. Multiple pulmonary nodules which are unchanged from the study dated March 25, 2023. Dictated by: Dacia Sabillon M.D. on 01/12/2024 at 14:26 Approved by: Dacia Sabillon M.D. on 01/12/2024 at 15:34
== END ==
PROVIDERS: PCP Internal Medicine; Referring Provider Internal Medicine; Visit Provider Internal Medicine
DX: I72.3 Aneurysm of iliac artery (principal); I71.22 Aneurysm of the aortic arch, without rupture; I70.0 Atherosclerosis of aorta; K44.9 Diaphragmatic hernia without obstruction or gangrene; K57.30 Diverticulosis of large intestine without perforation or abscess without bleeding; R91.8 Other nonspecific abnormal finding of lung field
CPT/HCPCS: 71275; 74174; Q9967

== ENCOUNTER → 2024-04-07 11:48 | Outpatient (CLI) | payer MEDICARE, SELFPAY ==
[2024-04-07 13:20] LABS: Aspartate Aminotransferase 22 IU/L (17-59); BUN Creatinine Ratio 16.5 (6-22); Blood Urea Nitrogen 14 mg/dL (9-20); Carbon Dioxide 25 mmol/L (22-32); Chloride 104 mmol/L (98-107); Cholesterol 192 mg/dL (140-199); Estimated Glomerular Filt Rate > 60 mL/min (>60); Glucose 100 mg/dL (80-110); HDL Cholesterol 29 mg/dL (40-60); HEMOLYSIS < 15 (0-50); LDL Cholesterol Calculated 92 mg/dL (<100); Potassium 4.5 mmol/L (3.4-5.1); Sodium 136 mmol/L (137-145); Triglycerides 357 mg/dL (35-150)
[2024-04-07 13:48] LABS: TSH w/ Reflex to FT4 3.15 uIU/mL (0.47-4.68)
== END ==
PROVIDERS: PCP Internal Medicine; Referring Provider Internal Medicine; Visit Provider Internal Medicine
DX: E78.2 Mixed hyperlipidemia (principal); I10 Essential (primary) hypertension; E03.9 Hypothyroidism, unspecified
CPT/HCPCS: 80048; 80061; 84443; 84450

== ENCOUNTER → 2024-12-21 11:38 | Outpatient (CLI) | payer MEDICARE, SELFPAY ==
--- NOTE | 2024-12-21 11:40 | DI.RAD.S_ITS ---
PROCEDURE: XR LUMBAR SPINE 2-3V INDICATIONS: back pain, no trauma TECHNIQUE: 3 views of the lumbar spine were acquired. COMPARISON: None. FINDINGS: Bones: Mild T11, T12 moderate L1, mild L2 and L5 compression fractures are likely chronic Alignment: Moderate dextroscoliosis is seen. Disc spaces: L4-5 anterior/posterior fusion provided by interbody graft and right unilateral pedicle screws and short interbody struts appreciated. Typical postoperative appearance. Severe degenerative disc disease T12-L1 through L2-3 with moderate L3-4 degenerative disc disease Soft tissues: 8 mm calcification left paraspinous region at L2 could represent a stone but is likely a granuloma IMPRESSION: Degeneration. L4-5 anterior/posterior fusion which appears solid anatomically aligned Multiple compression fractures-likely chronic Dictated by: Denton Quiros M.D. on 12/22/2024 at 17:29 Approved by: Denton Quiros M.D. on 12/22/2024 at 17:31
== END ==
LOC: RAD 11:40
PROVIDERS: PCP Internal Medicine; Referring Provider Internal Medicine; Visit Provider Internal Medicine
DX: M51.35 Other intervertebral disc degeneration, thoracolumbar region (principal); M51.360 Other intervertebral disc degeneration, lumbar region with discogenic back pain only; M48.54XA Collapsed vertebra, not elsewhere classified, thoracic region, initial encounter for fracture; M48.56XA Collapsed vertebra, not elsewhere classified, lumbar region, initial encounter for fracture; G89.29 Other chronic pain; Z98.1 Arthrodesis status
CPT/HCPCS: 72100

== ENCOUNTER → 2025-04-12 14:58 | Outpatient (CLI) | payer MEDICARE, SELFPAY ==
[2025-04-12 16:32] LABS: Aspartate Aminotransferase 21 IU/L (17-59); BUN Creatinine Ratio 17.1 (6-22); Blood Urea Nitrogen 14 mg/dL (9-20); Calcium 9.1 mg/dL (8.4-10.2); Carbon Dioxide 21 mmol/L (22-32); Chloride 100 mmol/L (98-107); Cholesterol 208 mg/dL (140-199); Estimated Glomerular Filt Rate > 60 mL/min (>60); Glucose 102 mg/dL (70-99); HDL Cholesterol 29 mg/dL (40-60); HEMOLYSIS < 15 (0-50); LDL Cholesterol Calculated 124 mg/dL (<100); Potassium 4.5 mmol/L (3.4-5.1); Sodium 133 mmol/L (137-145); Triglycerides 276 mg/dL (35-150)
[2025-04-12 16:59] LABS: Prostate Specific Antigen 8.98 ng/mL (0.10-4.00); TSH w/ Reflex to FT4 2.59 uIU/mL (0.47-4.68)
== END ==
PROVIDERS: PCP Internal Medicine; Referring Provider Internal Medicine; Visit Provider Internal Medicine
DX: E03.9 Hypothyroidism, unspecified (principal); N40.1 Benign prostatic hyperplasia with lower urinary tract symptoms; I10 Essential (primary) hypertension; E78.2 Mixed hyperlipidemia; N13.8 Other obstructive and reflux uropathy
CPT/HCPCS: 36415; 80048; 80061; 84153; 84443; 84450

== ENCOUNTER 2025-06-08 16:30 | Emergency (ER) | payer MEDICARE, SELFPAY ==
[2025-06-08] VITALS (17 sets, daily range): BP systolic 152–202; BP diastolic 79–114; PULSE 44–86; RESP 16; TEMP 36.9; O2SAT 95–98; BMI 25.4
--- NOTE | 2025-06-08 17:01 | DI.RAD.S_ITS ---
PROCEDURE: XR CHEST 1V INDICATIONS: Chest Pain TECHNIQUE: One view of the chest was acquired. COMPARISON: [facility], CR, XR CHEST 1V, 03/25/2023, 11:56. FINDINGS: Surgical changes and devices: None. Lungs and pleura: Lungs are clear. No pleural effusions or pneumothorax. Mediastinum: Mediastinal contours appear normal. Heart size is normal. Bones and chest wall: No suspicious bony lesions. Overlying soft tissues appear unremarkable. IMPRESSION: No acute pulmonary process. Dictated by: Evie Figueroa M.D. on 06/08/2025 at 17:29 Approved by: Evie Figueroa M.D. on 06/08/2025 at 17:29
--- NOTE | 2025-06-08 17:18 | EKG_ITS ---
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
[2025-06-08 17:39] LABS: Add Manual Diff / Slide Review NO; Hematocrit 42.2 % (41-53); Hemoglobin 14.7 g/dL (13.5-17.5); Lymphocytes Absolute Auto 1900 /uL (1100-4500); Mean Corpuscular HGB Conc 34.8 % (30-36); Mean Corpuscular Hemoglobin 30.0 PG (26-34); Mean Corpuscular Volume 86.4 fL (80-100); Platelet Count 173 X10^3/uL (150-400)
[2025-06-08 17:40] LABS: INR 1.2 (0.9-1.3); Prothrombin Time 13.1 SECONDS (9.4-12.5)
[2025-06-08 17:43] LABS: PTT Partial Thromboplastin Tim 29 SECONDS (25.1-36.5)
[2025-06-08 17:46] LABS: Alanine Aminotransferase 20 IU/L (<50); Albumin 4.3 g/dL (3.5-5.0); Albumin Globulin Ratio 1.2 (1.0-2.8); Alkaline Phosphatase 63 U/L (38-126); Blood Urea Nitrogen 11 mg/dL (9-20); Calcium 9.1 mg/dL (8.4-10.2); Carbon Dioxide 23 mmol/L (22-32); Chloride 100 mmol/L (98-107); Creatine Kinase 86 U/L (55-170); Estimated Glomerular Filt Rate > 60 mL/min (>60); Globulin 3.6 g/dL (1.7-4.1); Glucose 101 mg/dL (70-99); HEMOLYSIS < 15 (0-50); Lipase 67 U/L (23-300); Magnesium 2.0 mg/dL (1.6-2.3); Potassium 4.3 mmol/L (3.4-5.1); Sodium 132 mmol/L (137-145); Total Protein 7.9 g/dL (6.3-8.2)
[2025-06-08 17:55] LABS: NT-proBNP (BNP-Adult 18+) 41 pg/mL (<450)
[2025-06-08 17:59] LABS: Troponin I < 0.012 ng/mL (0.01-0.034)
[2025-06-08 19:59] LABS: Troponin I < 0.012 ng/mL (0.01-0.034)
--- NOTE | 2025-06-08 20:54 | DI.CT.S_ITS ---
PROCEDURE: CT HEAD/BRAIN WO CON INDICATIONS: head pain TECHNIQUE: Noncontrast 4.5 mm thick angled axial sections acquired from the foramen magnum to the vertex, with coronal and sagittal reformats. For radiation dose reduction, the following was used: automated exposure control, adjustment of mA and/or kV according to patient size. COMPARISON: [facility], CT, CT HEAD/BRAIN WO CON, 03/25/2023, 13:35. FINDINGS: Image quality: Diagnostic. CSF spaces: Basal cisterns are patent. No extra-axial fluid collections. The ventricles are symmetric in size and shape. Brain: No intracranial bleeds or mass effect. There is cerebral volume loss, with resultant ventricular and sulcal prominence. There are periventricular and deep white matter chronic small vessel ischemic changes. There is intracranial internal carotid artery atherosclerosis. Skull and face: Calvarium and visualized facial bones appear intact, without suspicious lesions. Sinuses: Visualized sinuses and mastoids are clear. IMPRESSION: No acute intracranial pathology. Dictated by: Kevin Edwards M.D. on 06/08/2025 at 21:12 Approved by: Kevin Edwards M.D. on 06/08/2025 at 21:13
--- NOTE | 2025-06-08 21:21 | ED.CHESTPAIN ---
HPI - Chest Pain General Chief Complaint: Chest Pain Stated Complaint: Feels pressure in head, upper body discomfort Time Seen by Provider: 06/08/25 20:54 Source: patient Mode of arrival: Ambulatory Limitations: no limitations History of Present Illness HPI narrative: 80 year old male with no known coronary interventions, history of thoracic aortic arch dilation complains of intermittent upper chest discomfort, no trauma or new activities, no shortness of breath, no recent cough. Also complains of headache discomfort, some post nasal drip like symptoms not responsive to OTC antihistamine zyrtec, has not tried nasal topical steroids. No focal weakness or numbness to face arms legs. No photophobia. No prior brain hemorrhage or lesions known. No prior stroke known. No recent fevers or chills. Denies cough, dyspnea, abdominal pain, painful or frequent urination, sore throat, neck pain. Related Data Previous Rx's ?Medication ?Instructions ?Recorded levothyroxine 75 mcg tablet 75 mcg PO QAM #90 tabs 04/18/25 (Levoxyl) lisinopril 20 mg tablet 20 mg PO DAILY #90 tabs 04/18/25 Allergies Allergy/AdvReac Type Severity Reaction Status Date / Time banana (BANANA) Allergy Severe SWELLING Verified 05/15/25 13:42 OF THE THROAT/MOUTH atorvastatin AdvReac Intermediate Joint Pain Verified 05/15/25 13:42 ezetimibe AdvReac Intermediate malaise Verified 05/15/25 13:42 pravastatin AdvReac Intermediate malaise Verified 05/15/25 13:42 Patient History Medical History Elevated PSA Chronic low back pain Overweight Sensorineural hearing loss Iliac artery aneurysm Aortic arch aneurysm Acquired hypothyroidism (04/28/13) Mixed hyperlipidemia Essential hypertension Surgical History Status post hernia repair Status post hernia repair Status post hernia repair Status post laminectomy History of spinal fusion Social History details: , grown children, retired IT. Smoking Status: Never smoker Smoking Status: Never smoker alcohol intake frequency: a few times a month Alcohol type: beer Exam Narrative Exam Narrative: GENERAL: Well-developed patient, well lit room, no distress, no obvious photphobia. HEAD: Atraumatic. Normocephalic. EYES: Pupils equal round and reactive. Extraocular motions intact. No scleral icterus. No injection or drainage. ENT: Nose without bleeding, purulent drainage. Throat without erythema, tonsillar hypertrophy or exudate. Airway patent. NECK: Trachea midline. Moves neck well. CARDIOVASCULAR: Regular rate and rhythm without murmurs, gallops, or rubs. RESPIRATORY: Clear to auscultation. Breath sounds equal bilaterally. No wheezes, rales, or rhonchi. GASTROINTESTINAL: Abdomen soft, non-tender, nondistended. EXTREMITIES: No edema or joint tenderness. BACK: Nontender without deformity or crepitance. No flank tenderness. NEURO: AOx3. Motor functions grossly nonfocal. SKIN: No rash or erythema of visible areas Initial Vital Signs Initial Vital Signs: Vital Signs Temperature 98.5 F 06/08/25 16:54 Pulse Rate 64 06/08/25 16:54 Respiratory Rate 16 06/08/25 16:54 Blood Pressure 173/84 H 06/08/25 16:54 Pulse Oximetry 97 06/08/25 16:54 Oxygen Delivery Method Room Air 06/08/25 16:54 Course Orders Ordered: Discontinued Medications Aspirin (Aspirin 81 Mg Chew Tab) 324 mg PO NOW ONE Stop: 06/08/25 17:02 Sodium Chloride (Normal Saline 0.9%) 1,000 mls @ 500 mls/hr IV BOLUS ONE Stop: 06/09/25 00:25 Last Infusion: 06/08/25 23:48 Dose: Infused Documented By: Admin: 06/08/25 22:38 Dose: 500 mls/hr Documented By: MANOLO Vital Signs Vital signs: Vital Signs - 8 hr 06/08/25 16:54 Temperature 98.5 F Pulse Rate 64 Respiratory Rate 16 Blood Pressure 173/84 H Pulse Oximetry 97 Oxygen Delivery Method Room Air MDM - Chest Pain Lab Data Attestation: I reviewed the patient's lab results. Lab results narrative: Normal range CBC, CMP. Troponin negative x2. 06/08/25 17:25 06/08/25 17:25 Labs: Lab Results 06/08/25 06/08/25 Range/Units 17:25 19:27 WBC 9.4 (4.5-11.0) X10^3/uL RBC 4.89 (4.5-5.9) X10^6/uL Hgb 14.7 (13.5-17.5) g/dL Hct 42.2 (41-53) % MCV 86.4 (80-100) fL MCH 30.0 (26-34) PG MCHC 34.8 (30-36) % RDW 14.9 H (11.6-14.8) % Plt Count 173 (150-400) X10^3/uL Neut % (Auto) 70.5 (50-75) % Lymph % (Auto) 20.4 L (25-40) % [place] % (Auto) 7.6 (3-14) % Eos % (Auto) 1.0 L (2-4) % Baso % (Auto) 0.5 (0-2) % Neut # (Auto) 6600 (3326-6983) /uL Lymph # (Auto) 1900 (3872-3856) /uL [place] # (Auto) 700 (0-900) /uL Eos # (Auto) 100 (0-450) /uL Baso # (Auto) 0 (0-100) /uL PT 13.1 H (9.4-12.5) SECONDS INR 1.2 (0.9-1.3) APTT 29 (25.1-36.5) SECONDS Sodium 132 L (137-145) mmol/L Potassium 4.3 (3.4-5.1) mmol/L Chloride 100 (98-107) mmol/L Carbon Dioxide 23 (22-32) mmol/L BUN 11 (9-20) mg/dL Creatinine 0.79 (0.66-1.25) mg/dL Estimated GFR > 60 (>60) mL/min BUN/Creatinine Ratio 13.9 (6-22) Glucose 101 H (70-99) mg/dL Calcium 9.1 (8.4-10.2) mg/dL Magnesium 2.0 (1.6-2.3) mg/dL Total Bilirubin 0.6 (0.2-1.3) mg/dL AST 22 (17-59) IU/L ALT 20 (<50) IU/L Alkaline Phosphatase 63 (38-126) U/L Total Creatine Kinase 86 (55-170) U/L Troponin I < 0.012 < 0.012 (0.01-0.034) ng/mL NT-Pro-B Natriuret Pep 41 (<450) pg/mL Total Protein 7.9 (6.3-8.2) g/dL Albumin 4.3 (3.5-5.0) g/dL Globulin 3.6 (1.7-4.1) g/dL Albumin/Globulin Ratio 1.2 (1.0-2.8) Lipase 67 (23-300) U/L Imaging Data CT scan - head: Radiologist's Impression: [address] [address] [address] Scan Report Signed Patient: Nacho Biswas MR#: [id number] : 1945 Acct:[id number] Age/Sex: 80 / M Date of Service: 06/08/25 Loc: ED Accession Number: [id number] Procedure: CT head/brain wo con Ordering Provider: Darinel Faulkner MD PROCEDURE: CT HEAD/BRAIN WO CON INDICATIONS: head pain TECHNIQUE: Noncontrast 4.5 mm thick angled axial sections acquired from the foramen magnum to the vertex, with coronal and sagittal reformats. For radiation dose reduction, the following was used: automated exposure control, adjustment of mA and/or kV according to patient size. COMPARISON: [facility], CT, CT HEAD/BRAIN WO CON, 03/25/2023, 13:35. FINDINGS: Image quality: Diagnostic. CSF spaces: Basal cisterns are patent. No extra-axial fluid collections. The ventricles are symmetric in size and shape. Brain: No intracranial bleeds or mass effect. There is cerebral volume loss, with resultant ventricular and sulcal prominence. There are periventricular and deep white matter chronic small vessel ischemic changes. There is intracranial internal carotid artery atherosclerosis. Skull and face: Calvarium and visualized facial bones appear intact, without suspicious lesions. Sinuses: Visualized sinuses and mastoids are clear. IMPRESSION: No acute intracranial pathology. Dictated by: Kevin Edwards M.D. on 06/08/2025 at 21:12 Approved by: Kevin Edwards M.D. on 06/08/2025 at 21:13 Chest x-ray: Radiologist's Impression: [address] [address] XRay Report Signed Patient: Nacho Biswas MR#: [id number] : 1945 Acct:[id number] Age/Sex: 80 / M Date of Service: 06/08/25 Loc: ED Accession Number: [id number] Procedure: XR chest 1V Ordering Provider: Bette Lechuga MD PROCEDURE: XR CHEST 1V INDICATIONS: Chest Pain TECHNIQUE: One view of the chest was acquired. COMPARISON: [facility], , XR CHEST 1V, 03/25/2023, 11:56. FINDINGS: Surgical changes and devices: None. Lungs and pleura: Lungs are clear. No pleural effusions or pneumothorax. Mediastinum: Mediastinal contours appear normal. Heart size is normal. Bones and chest wall: No suspicious bony lesions. Overlying soft tissues appear unremarkable. IMPRESSION: No acute pulmonary process. Dictated by: Evie Figueroa M.D. on 06/08/2025 at 17:29 Approved by: Evie Figueroa M.D. on 06/08/2025 at 17:29 CT angiogram chest and pelvis: Radiologist's Impression: [place] [address] CT Scan Report Signed Patient: Nacho Biswas MR#: [id number] : 1945 Acct:[id number] Age/Sex: 80 / M Date of Service: 06/08/25 Loc: ED Accession Number: [id number] Procedure: CT angio chest abdomen pelvis Ordering Provider: Darinel Faulkner MD PROCEDURE: CT ANGIO CHEST ABDOMEN PELVIS INDICATIONS: chest pain, aortogram, hx thoracic aortic aneursym TECHNIQUE: Precontrast 5 mm thick sections acquired from the lung apices to the iliac crests. After the administration of intravenous contrast, 2.5 mm thick sections again acquired from the lung apices to the iliac crests. Maximum intensity projection (MIP) oblique sagittal and coronal reformats were then acquired. For radiation dose reduction, the following was used: automated exposure control. COMPARISON: CT report from 01/12/2024 FINDINGS: Image quality: Diagnostic. 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 There is plaque fissuring present. Infrarenal aortic aneurysm measuring up to 3 cm, unchanged from prior. Fusiform aneurysm the right internal iliac artery measuring 3 cm, unchanged from prior. Left internal iliac aneurysm measuring 2.2 cm, unchanged from prior. CHEST: Lower Neck: No enlarged lymph nodes. Thyroid: No thyroid nodules which require sonographic evaluation. Axillae: No enlarged lymph nodes. Chest Wall: Unremarkable. Lungs and Pleura: No pneumothorax or pleural effusions. Stable 6 mm solid pulmonary nodule in the left lower lobe compared with 202, benign. Mild anterior peripheral reticulation of the right middle lobe, possibly posttraumatic. Heart: Heart size is normal. No pericardial effusion. Thoracic Vessels: Pulmonary arteries demonstrate normal size. Mediastinum and Julia: No enlarged lymph nodes. Esophagus: No wall thickening. No hiatal hernia. ABDOMEN: Liver: No solid mass. Gallbladder: No radiopaque gallstones or wall thickening. Biliary ducts: No biliary dilation. Pancreas: No ductal dilation. Spleen: Size is within normal limits. Adrenal Glands: No adrenal nodules. Kidneys and Ureters: No hydronephrosis. No solid mass. No complex renal cystic lesion which requires follow up. Stomach and Bowel: Normal colonic caliber, without significant wall thickening. Colonic diverticulosis without evidence of diverticulitis. Peritoneum: No abnormal intraperitoneal fluid. No free air. Ventral Wall: No hernia. Abdominal Nodes: No retroperitoneal or mesenteric adenopathy by size criteria. Vessels: Inferior vena cava is normal in size. PELVIS: Pelvic Organs: Prostatomegaly. Bladder: Unremarkable. Pelvic Nodes: No enlarged lymph nodes. Miscellaneous: No inguinal hernias are seen. Bones: Degenerative disc disease of the lumbar spine. Surgical fusion L4-5. Chronic anterior wedging of the T12 vertebral body. IMPRESSION: No evidence of acute aortic syndrome. 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 Dictated by: Kevin Edwards M.D. on 06/08/2025 at 23:00 Approved by: Kevin Edwards M.D. on 06/08/2025 at 23:05 ECG Data Attestation: I personally reviewed and interpreted this ECG as follows: Interpretation: 1718, normal sinus rhythm with rate of 68, no obvious ST segment elevation or depression changes. DE 178, QRS 92, QTC 418. MDM Narrative Medical decision making narrative: 80 year old male with upper chest discomfort and headache, thoracic arch aortic dilation known not imaged for 1-2 years. Afebrile, SIRS screen negative, chest clear, no respiratory distress. EKG CXR screening labs pending. CT Head ordered. DDx headache consider ICH, intracranial mass, sinusitis, other. Doubt meningitis clinically. DDx upper chest discomfort consider ACS, aortic dissection/aneurysmal change, pneumonia, DIDI, other. EKG without obvious ischemic changes. Labs unremarkable including troponin sets x2 negative/nonmeasurable. Chest XRay no acute changes. CT Head no acute changes, see radiology report. History of aortic arch dilation, GFR favorable, consider CT Aortogram, patient agreeeable. CTA Chest Abdomen Pelvis. Stable saccular aortic arch aneurysm compared to Dec 2021 study. No aortic syndrome changes. No acute changes. See radiology report. Symptoms headache improved without specific treatment, post nasal drip advised OTC antihistamine, consider OTC topical nasal steroid. No further chest discomfort, follow-up with PCP for further cardiac or other testing as an outpatient for now. Improved, stable. DC home with family. Discharge Plan Departure Patient Disposition: Home Clinical Impression: Head congestion, Chest pain, Aneurysm, thoracic aortic Activity Restrictions/Additional Instructions: Complaint of head congestion postnasal drip like symptoms. CT head from triage no acute changes. Also with complaint of recent chest pain, history of thoracic aneurysm noted. Chest x-ray negative. EKG and serial blood tests not suggestive of heart attack at this time. CT angiogram of the chest abdomen and pelvis showed a stable appearing thoracic aortic arch aneurysm, no change from comparison study. Copy of the reports provided. Consider taking aspirin daily. Consider trial of nasal steroid such as Flonase [id number], consider use of [id number] Xyzal or Zyrtec nonsedating antihistamine, to see if head congestion symptoms improved. Further cardiac workup as an outpatient for now. Contact information given for local customer solutions coordinator Dr. Mujica, who can be reached by office tomorrow during regular hours, to help schedule close follow up appointment. Return earlier to this/nearest emergency department for any change worsening symptoms or any concerns prior. Prescriptions: No Action lisinopril 20 mg tablet 20 mg PO DAILY Qty: 90 3RF levothyroxine [Levoxyl] 75 mcg tablet 75 mcg PO QAM Qty: 90 3RF Referrals: Eren Mujica MD [Physician, Cardiology] Noé Mandel MD [Primary Care Provider, Internal Medicine] Stand Alone Forms: Patient Portal/API
--- NOTE | 2025-06-08 22:26 | DI.CT.S_ITS ---
PROCEDURE: CT ANGIO CHEST ABDOMEN PELVIS INDICATIONS: chest pain, aortogram, hx thoracic aortic aneursym TECHNIQUE: Precontrast 5 mm thick sections acquired from the lung apices to the iliac crests. After the administration of intravenous contrast, 2.5 mm thick sections again acquired from the lung apices to the iliac crests. Maximum intensity projection (MIP) oblique sagittal and coronal reformats were then acquired. For radiation dose reduction, the following was used: automated exposure control. COMPARISON: CT report from 01/12/2024 FINDINGS: Image quality: Diagnostic. 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 There is plaque fissuring present. Infrarenal aortic aneurysm measuring up to 3 cm, unchanged from prior. Fusiform aneurysm the right internal iliac artery measuring 3 cm, unchanged from prior. Left internal iliac aneurysm measuring 2.2 cm, unchanged from prior. CHEST: Lower Neck: No enlarged lymph nodes. Thyroid: No thyroid nodules which require sonographic evaluation. Axillae: No enlarged lymph nodes. Chest Wall: Unremarkable. Lungs and Pleura: No pneumothorax or pleural effusions. Stable 6 mm solid pulmonary nodule in the left lower lobe compared with 2022, benign. Mild anterior peripheral reticulation of the right middle lobe, possibly posttraumatic. Heart: Heart size is normal. No pericardial effusion. Thoracic Vessels: Pulmonary arteries demonstrate normal size. Mediastinum and Julia: No enlarged lymph nodes. Esophagus: No wall thickening. No hiatal hernia. ABDOMEN: Liver: No solid mass. Gallbladder: No radiopaque gallstones or wall thickening. Biliary ducts: No biliary dilation. Pancreas: No ductal dilation. Spleen: Size is within normal limits. Adrenal Glands: No adrenal nodules. Kidneys and Ureters: No hydronephrosis. No solid mass. No complex renal cystic lesion which requires follow up. Stomach and Bowel: Normal colonic caliber, without significant wall thickening. Colonic diverticulosis without evidence of diverticulitis. Peritoneum: No abnormal intraperitoneal fluid. No free air. Ventral Wall: No hernia. Abdominal Nodes: No retroperitoneal or mesenteric adenopathy by size criteria. Vessels: Inferior vena cava is normal in size. PELVIS: Pelvic Organs: Prostatomegaly. Bladder: Unremarkable. Pelvic Nodes: No enlarged lymph nodes. Miscellaneous: No inguinal hernias are seen. Bones: Degenerative disc disease of the lumbar spine. Surgical fusion L4-5. Chronic anterior wedging of the T12 vertebral body. IMPRESSION: No evidence of acute aortic syndrome. 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 Dictated by: Kevin Edwards M.D. on 06/08/2025 at 23:00 Approved by: Kevin Edwards M.D. on 06/08/2025 at 23:05
[2025-06-08] MEDS: SODIUM CHLORIDE 0.9% 1,000 ML 500 ML IV (22:38)
== END 2025-06-08 23:55 | disposition home or self-care (01) ==
PROVIDERS: Emergency Medicine; Emergency Provider Emergency Medicine; PCP Internal Medicine
DX: R07.9 Chest pain, unspecified (principal); I71.20 Thoracic aortic aneurysm, without rupture, unspecified; R09.81 Nasal congestion; R51.9 Headache, unspecified
CPT/HCPCS: 36415; 70450; 71045; 71275; 74174; 80053; 82550; 83690; 83735; 83880; 84484; 85025; 85610; 85730; 93005; 96360; 99284; Q9967

== ENCOUNTER → 2025-07-31 11:18 | Outpatient (CLI) | payer MEDICARE, SELFPAY ==
--- NOTE | 2025-07-31 11:19 | DI.MRI.S_ITS ---
PROCEDURE: MR PELVIC PROSTATE PROTOCOL INDICATIONS: 80 y/o M w/ an elevated PSA, please eval TECHNIQUE: Coronal HASTE, axial T1 FSE with fat saturation, 3-plane nonbreath-hold T2 FSE. After the administration of contrast, dynamic axial, delayed axial and coronal VIBE or 2-D FLASH with fat saturation through the pelvis. Diffusion weighted imaging and ADC was performed. COMPARISON: None. FINDINGS: Image quality: Diffusion weighted and dynamic contrast enhanced images are diagnostic. Prostate: Gland size is 5.7 x 3.2 x 4.1 cm; ellipsoid gland volume is 39 mL. PSA density is calculated to be 0.18 Right mid and apex transitional zone lesion measures 2.4 x 2.3 x 2.4 cm. DWI score 5. T2 score 5. DCE positive. PI-RADS 5. Transitional zone heterogenous nodules are present, either well encapsulated or mostly encapsulated, compatible with PI-RADS 1 or 2 likely BPH nodules. Mildly T2 hypointense heterogenous striated appearance of the peripheral zone is commonly seen with current or prior prostatitis, PI-RADS 2. No definite extracapsular disease Genitourinary system: Trabeculated urinary bladder usually from chronic obstruction Bowel and peritoneum: No bowel obstruction or drainable ascites. Colonic diverticula are seen Nodes and vessels: Right internal iliac aneurysm is partially evaluated, better assessed on prior angiogram. No lymph nodes enlarged by size criteria identified in the pelvis. Soft tissues: No pelvic wall abnormality Bones: No suspicious osseous enhancement in the pelvis IMPRESSION: PI-RADS 5 lesion in the right anterior transitional zone measuring up to 2.4 cm. No seminal vesicle or extracapsular involvement identified by MRI. Background BPH and sequelae of prostatitis are suspected. No pelvic lymphadenopathy by size criteria or aggressive osseous abnormality in the pelvis. Dictated by: J Luis Thomas M.D. on 07/31/2025 at 13:45 Approved by: J Luis Thomas M.D. on 07/31/2025 at 13:51
== END ==
LOC: MRI 11:19
PROVIDERS: PCP Internal Medicine; Referring Provider Urology; Visit Provider Urology
DX: N42.9 Disorder of prostate, unspecified (principal); N32.89 Other specified disorders of bladder; I72.3 Aneurysm of iliac artery; R97.20 Elevated prostate specific antigen [PSA]; K57.90 Diverticulosis of intestine, part unspecified, without perforation or abscess without bleeding
CPT/HCPCS: 72197; A9579

== ENCOUNTER → 2025-11-14 10:01 | Outpatient (CLI) | payer MEDICARE, SELFPAY ==
[2025-11-14 12:10] LABS: Blood Urea Nitrogen 16 mg/dL (9-20); Calcium 9.2 mg/dL (8.4-10.2); Carbon Dioxide 24 mmol/L (22-32); Chloride 103 mmol/L (98-107); Estimated Glomerular Filt Rate > 60 mL/min (>60); Glucose 93 mg/dL (70-99); HEMOLYSIS < 15 (0-50); Potassium 5.0 mmol/L (3.4-5.1); Sodium 137 mmol/L (137-145)
== END ==
PROVIDERS: PCP Internal Medicine; Referring Provider Internal Medicine; Visit Provider Internal Medicine
DX: I10 Essential (primary) hypertension (principal)
CPT/HCPCS: 36415; 80048